=== PATIENT | female | born 1960 | race African-American/Black ===

== ENCOUNTER 2021-09-02 17:34 | Emergency (ER) | payer OTHER ==
[~2021-09-02] VITALS: Ht 170.2 cm; Wt 82.0 kg
[2021-09-02 17:39] VITALS: BP 160/87
[2021-09-02] MEDS ORDERED: IBUP-2028 MT (22:49)
== END 2021-09-02 23:00 | disposition home or self-care (01) ==
LOC: ER 17:34
DX: S09.8XXA Other specified injuries of head, initial encounter (principal); S16.1XXA Strain of muscle, fascia and tendon at neck level, initial encounter; S39.012A Strain of muscle, fascia and tendon of lower back, initial encounter; H57.10 Ocular pain, unspecified eye; I10 Essential (primary) hypertension; V49.59XA Passenger injured in collision with other motor vehicles in traffic accident, initial encounter; Y93.89 Activity, other specified; Y92.411 Interstate highway as the place of occurrence of the external cause; H26.9 Unspecified cataract
CPT/HCPCS: 72100; 81025; 99284